=== PATIENT | male | born 1960 | race Caucasian/White ===

== ENCOUNTER 2017-08-12 06:31 | Inpatient (IN) ==
[2017-08-12] MEDS ORDERED: HYDROmorphone 2 MG/1 ML VIAL IV STA (07:30)
[2017-08-12] MEDS ORDERED: ONDANSETRON 4 MG/2 ML VIAL IV STA (07:30)
[2017-08-12] MEDS ORDERED: SODIUM CHLORIDE 0.9% 500 ML IV STA (07:30)
[2017-08-12 07:50] LABS: Basophils % 0.2 % (0.0-0.8); Eosinophils # 0.1 10*3/uL (0.0-0.87); Eosinophils % 0.6 % (0.00-10.9); Hematocrit 42.6 VOL% (42.0-52.0); Immature Granulocytes % 0.6 %; Immature Granulocytes Absolute 0.08 #; Lymphocytes % 7.1 % (21.2-54.2); Mean Corpuscular HGB Conc 32.9 GM/DL (32-36); Mean Corpuscular Hemoglobin 28 PG (27-34); Mean Corpuscular Volume 85.9 FL (87-102); Mean Platelet Volume 10.1 FL (9.6-12.0); Monocytes # 0.9 10*3/uL (0.11-0.8); Monocytes % 6.5 % (1.7-12.7); Neutrophils # 12.3 10*3/uL (1.4-7.4); Platelet Count 271 T/CUMM (130-400); Red Blood Count 4.96 MC/CUMM (3.8-5.5); Red Cell Distribution Width 14.6 % (9.3-17.3); White Blood Count 14.4 T/CUMM (4-12)
[2017-08-12] MEDS ORDERED: ONDANSETRON 4 MG/2 ML VIAL ONE (07:53)
[2017-08-12] MEDS ORDERED: HYDROmorphone 2 MG/1 ML VIAL ONE (07:53)
[2017-08-12 08:12] LABS: Apearance,Urine CLEAR (Clear); Bilirubin,Urine Negative (Negative); Blood, Urine Negative (Negative); Glucose,Urine (UA) Negative (Negative); Ketones,Urine 5 mg/dL (Negative); Mucus,Urine Occasional /LPF (Occasional); Nitrite,Urine Negative (Negative); Protein,Urine Negative; RBC,Urine <1 /HPF (0-4); Urine Color Yellow (Yellow); Urine Specific Gravity 1.017 (1.001-1.035); WBC,Urine <1 /HPF (0-6)
[2017-08-12 08:24] LABS: Albumin 2.9 G/DL (3.4-5.0); Bilirubin,Total 0.7 MG/DL (0.2-1.0); Lactic Acid 0.7 MMOL/L (0.4-2.0); Osmolality,Calculated 269.2 MOS/KG (273-304); Potassium 4.3 MMOL/L (3.5-5.1); Total Protein 6.8 G/DL (6.4-8.3)
[2017-08-12] MEDS ORDERED: CLINDAMYCIN INJ 900 MG in PREMIX 1 EACH IV ONE (09:26)
[2017-08-12] MEDS ORDERED: ONDANSETRON 4 MG/2 ML VIAL IV PRN ×2 (09:28→15:20)
[2017-08-12] MEDS ORDERED: HYDROmorphone 2 MG/1 ML VIAL IV PRN ×2 (09:28→15:20)
[2017-08-12] MEDS ORDERED: LACTATED RINGERS 1,000 ML IV SCH (09:30)
[2017-08-12 09:38] LABS: PT Patient Result 10.4 SECS
[2017-08-12] MEDS ORDERED: CLINDAMYCIN INJ 50 ML IV ONE (11:24)
[2017-08-12 14:17] LABS: Apearance,Urine CLEAR (Clear); Bacteria,Urine Occasional /HPF (Few); Bilirubin,Urine Negative (Negative); Blood, Urine Negative (Negative); Glucose,Urine (UA) Negative (Negative); Ketones,Urine Negative (Negative); Mucus,Urine Occasional /LPF (Occasional); Nitrite,Urine Negative (Negative); Protein,Urine Negative; RBC,Urine <1 /HPF (0-4); Urine Color Yellow (Yellow); Urine Specific Gravity 1.041 (1.001-1.035); WBC,Urine <1 /HPF (0-6)
[2017-08-12] MEDS ORDERED: ceFAZolin 1,000 MG VIAL ONE ×2 (14:17→14:19)
[2017-08-12] MEDS ORDERED: ALBUTEROL/IPRATROPIUM 3 ML NEB RESP TX ONE ×2 (15:29→15:40)
[2017-08-12] MEDS ORDERED: fentaNYL 100 MCG/2 ML VIAL ONE (15:40)
[2017-08-12] MEDS ORDERED: SEVOFLURANE 1 UNIT/15 MINUTE INH ONE (15:40)
[2017-08-12] MEDS ORDERED: KETOROLAC 30 MG/1 ML VIAL ONE (15:40)
[2017-08-12] MEDS ORDERED: PROPOFOL 200 MG/20 ML VIAL IV ONE (15:41)
[2017-08-12] MEDS ORDERED: PHENYLEPHRINE 50 MG/5 ML VIAL ONE (15:42)
[2017-08-12] MEDS ORDERED: ACETAMINOPHEN 1,000 MG/100 ML VIAL IV ONE (15:42)
[2017-08-12] MEDS ORDERED: NEOSTIGMINE 10 MG/10 ML VIAL ONE (15:42)
[2017-08-12] MEDS ORDERED: MIDAZOLAM 2 MG/2 ML VIAL ONE (15:42)
[2017-08-12] MEDS ORDERED: GLYCOPYRROLATE 0.4 MG/2 ML VIAL ONE (15:42)
[2017-08-12] MEDS ORDERED: ALBUTEROL INHALER 8 GM INH ONE (15:43)
[2017-08-12] MEDS ORDERED: SUCCINYLCHOLINE 200 MG/10 ML VIAL ONE (15:43)
[2017-08-12] MEDS ORDERED: ROCURONIUM 100 MG/10 ML VIAL IV ONE (15:43)
[2017-08-12] MEDS: KETOROLAC 15 MG/1 ML VIAL IV SCH ×2 (16:44→21:45)
[2017-08-12] MEDS ORDERED: INFLUENZA VIRUS VACCINE 0.5 ML SYRINGE IM ONE (17:02)
[2017-08-12] MEDS: SODIUM CHLORIDE 0.45% 1,000 ML IV SCH (17:15)
[2017-08-12] MEDS: CLINDAMYCIN INJ 900 MG in PREMIX 1 EACH IV SCH (21:39)
[2017-08-13] MEDS: SODIUM CHLORIDE 0.45% 1,000 ML IV SCH ×3 (01:53→22:00)
[2017-08-13] MEDS: KETOROLAC 15 MG/1 ML VIAL IV SCH ×4 (03:16→21:15)
[2017-08-13 05:19] LABS: Calcium 8.1 MG/DL (8.5-10.1); Osmolality,Calculated 270.2 MOS/KG (273-304); Potassium 4.6 MMOL/L (3.5-5.1)
[2017-08-13] MEDS: CLINDAMYCIN INJ 900 MG in PREMIX 1 EACH IV SCH ×3 (05:30→21:15)
[2017-08-13 06:04] LABS: Basophils % 0.2 % (0.0-0.8); Eosinophils # 0.1 10*3/uL (0.0-0.87); Hematocrit 39.9 VOL% (42.0-52.0); Hemoglobin 12.7 GM/DL (14.0-18.0); Immature Granulocytes % 0.5 %; Immature Granulocytes Absolute 0.06 #; Lymphocytes # 0.8 10*3/uL (1.4-4.0); Lymphocytes % 6.8 % (21.2-54.2); Mean Corpuscular HGB Conc 31.8 GM/DL (32-36); Mean Corpuscular Hemoglobin 28 PG (27-34); Mean Corpuscular Volume 88.3 FL (87-102); Mean Platelet Volume 10.3 FL (9.6-12.0); Monocytes # 0.9 10*3/uL (0.11-0.8); Neutrophils # 9.6 10*3/uL (1.4-7.4); Neutrophils % 83.5 % (38.7-73.9); Platelet Count 283 T/CUMM (130-400); Red Blood Count 4.52 MC/CUMM (3.8-5.5); Red Cell Distribution Width 14.6 % (9.3-17.3); White Blood Count 11.5 T/CUMM (4-12)
[2017-08-13] MEDS: FUROSEMIDE 40 MG TABLET PO SCH (09:41)
[2017-08-13] MEDS: POTASSIUM CHLORIDE 20 MEQ TABLET PO SCH (09:41)
[2017-08-13] MEDS: LISINOPRIL/HCTZ 20-25 MG TABLET PO SCH (09:41)
[2017-08-13] MEDS: PANTOPRAZOLE 40 MG VIAL IV SCH (09:42)
[2017-08-13] MEDS: ENOXAPARIN 40 MG/0.4 ML SYRINGE SUBCUT SCH (09:42)
[2017-08-13] MEDS: ACETAMINOPHEN 325 MG TABLET PO PRN ×2 (11:31→21:13)
[2017-08-13] MEDS: DOCUSATE SODIUM 100 MG CAPSULE PO SCH (21:14)
[2017-08-14] MEDS: KETOROLAC 15 MG/1 ML VIAL IV SCH ×3 (03:50→15:36)
[2017-08-14] MEDS: ACETAMINOPHEN 325 MG TABLET PO PRN (05:11)
[2017-08-14] MEDS: CLINDAMYCIN INJ 900 MG in PREMIX 1 EACH IV SCH (05:11)
[2017-08-14] MEDS: SODIUM CHLORIDE 0.45% 1,000 ML IV SCH ×2 (06:40→15:36)
[2017-08-14] MEDS: PANTOPRAZOLE 40 MG VIAL IV SCH (09:15)
[2017-08-14] MEDS: ENOXAPARIN 40 MG/0.4 ML SYRINGE SUBCUT SCH (09:16)
[2017-08-14] MEDS: DOCUSATE SODIUM 100 MG CAPSULE PO SCH (09:16)
[2017-08-14] MEDS: FUROSEMIDE 40 MG TABLET PO SCH (09:16)
[2017-08-14] MEDS: POTASSIUM CHLORIDE 20 MEQ TABLET PO SCH (09:16)
[2017-08-14] MEDS: LISINOPRIL/HCTZ 20-25 MG TABLET PO SCH (09:16)
[2017-08-14 17:04] VITALS: BP 129/74
== END 2017-08-14 17:21 | disposition home health service (06) | DRG 354 ==
LOC: EDUNIT# → EDBD → N.ED 06:31 → N.EDINP 09:28 → N.2E 16:31
PROVIDERS: ADMIT Specialist; ATTEND Specialist